=== PATIENT | female | born 1960 | race Two or more races ===

== ENCOUNTER 2024-12-24 09:56 | Emergency (ER) | payer OTHER, SELFPAY ==
[2024-12-24 10:17] VITALS: BP 138/88; PULSE 100; RESP 16; TEMP 36.9; O2SAT 97; BMI 29.2
--- NOTE | 2024-12-24 10:22 | XR_ITS ---
Examination: CT brain head without contrast. 2-D sagittal coronal reconstructions Date and time of exam:10/24/2024 1051 hours COMPARISON: 02/19/2022 INDICATIONS: Headaches dizziness and vomiting beginning 4 days ago CTDI: vol (mGy):43.7 DLP: (mGycm):842 Technique: Multiple CT axial sections of the brain have been obtained, 5 mm slice thickness. Contrast has not been administered. 2-D sagittal, coronal reconstructions have been obtained Low dose protocols were performed. One or more of the following dose reduction techniques were used; automated exposure control, adjustment of the mA and/or KV according to patient size, use of iterative reconstruction technique. Findings: No significant ventricular enlargement. Intra-axial or extra-axial hemorrhage density is not seen. No mass effect or midline shift Basal cisterns are not remarkable. Fourth ventricle is midline. Cranial vault intact. Impression: Negative for acute hemorrhage, mass effect or midline shift As clinically warranted, brain MRI follow-up would best assess for acute ischemic change
--- NOTE | 2024-12-24 10:22 | EKG_ITS ---
[facility] Test Date: 2024-12-24 Pat Name: FREDIS REYES Department: Room: - Gender: Female [employer]: : 1960 Requested By: Red Rivas (RESIDENTIAL THERAPIST) Order Number: [id number] Reading MD: Red Rivas (RESIDENTIAL THERAPIST) Measurements Intervals [place] Rate: 96 P: 47 AK: 134 QRS: 36 QRSD: 83 T: 101 QT: 335 QTc: 425 Interpretive Statements SINUS RHYTHM NONSPECIFIC T-WAVE ABNORMALITY Compared to ECG 04/29/2023 12:46:29 No significant changes /store/S0/[id number]/[id number].pdf
--- NOTE | 2024-12-24 10:23 | XR_ITS ---
Examination: PA lateral chest 2 views TECHNIQUE: Upright PA lateral chest 2 views Date and time: December 24, 2024 1033 hours INDICATIONS: Coughing shortness of breath today. FINDINGS: Normal heart size. Lungs are clear. The osseous structures are intact IMPRESSION: No active disease
--- NOTE | 2024-12-24 10:23 | PD.EDRME ---
Rapid Medical Screening Exam RME Arrival date/time: 12/24/24 09:56 64-year-old female presents to the emergency department today for complaints of headache, generalized bodyaches nausea vomiting Chief Complaint: Headache Vital signs: Vital Signs Temperature 98.4 F 12/24/24 10:17 Pulse Rate 100 12/24/24 10:17 Respiratory Rate 16 12/24/24 10:17 Blood Pressure 138/88 H 12/24/24 10:17 Pulse Oximetry (%) 97 12/24/24 10:17 Oxygen Delivery Method Room Air 12/24/24 10:17
[2024-12-24 10:48] LABS: Basophils # (Auto) 0.0 Thou/mm3 (0.0-0.2); Basophils % (Auto) 1 % (0-2.5); Eosinophils # (Auto) 0.1 Thou/mm3 (0.0-0.5); Eosinophils % (Auto) 1 % (0-10); Hematocrit 43.1 % (36.0-46.0); Hemoglobin 14.7 g/dL (12.0-16.0); Immature Granulocytes Auto 0.02 Thou/mm3 (0.00-0.00); Lymphocytes # (Auto) 1.1 Thou/mm3 (1.0-4.8); Lymphocytes % (Auto) 15 % (10-50); Mean Corpuscular HGB Conc 34.1 g/dl (31.0-37.0); Mean Corpuscular Hemoglobin 30.6 pg (25.0-35.0); Mean Corpuscular Volume 90 fL (80-100); Monocytes # (Auto) 0.6 Thou/mm3 (0.0-0.8); Monocytes % (Auto) 8 % (0-12); Neutrophils # (Auto) 5.7 Thou/mm3 (1.8-7.7); Neutrophils % (Auto) 76 % (37-80); Nucleated Red Blood Cell # 0.00 Thou/mm3 (0.00-0.00); Nucleated Red Blood Cell % 0 /100 WBC (0); Platelet Count 228 Thou/mm3 (140-440); RDW Standard Deviation 42.9 fL (36.4-46.3); Red Blood Count 4.80 Miln/mm3 (4.00-5.20); White Blood Count 7.5 Thou/mm3 (3.6-11.0)
[2024-12-24 10:51] LABS: Collection Type, Urine Clean Catch
[2024-12-24 11:00] LABS: INR 1.0 (0.9-1.3); Partial Thromboplastin Time 23.9 Seconds (22.0-36.0); Prothrombin Time 10.8 Seconds (9.0-12.2)
[2024-12-24] MEDS: HYDROcodone/APAP 5/325 TABLET 1 TAB PO (11:01)
[2024-12-24] MEDS: METOCLOPRAMIDE INJ 5 MG/ML VIAL 2 ML 10 MG IM (11:01)
[2024-12-24 11:05] LABS: Alanine Aminotransferase 17 U/L (10-49); Albumin, Serum 4.5 gm/dL (3.4-4.8); Albumin/Globulin Ratio 1.4 (1.2-2.2); Alkaline Phosphatase 95 U/L (46-116); Anion Gap 12 (7-16); Aspartate Amino Transferase 18 U/L (0-34); BUN/Creatinine Ratio 12 Ratio (12-20); Bilirubin,Total 1.1 mg/dL (0.3-1.2); Blood Urea Nitrogen 11 mg/dL (9-23); Calcium 9.5 mg/dL (8.3-10.6); Calcium (Corrected) 9.5 mg/dL (8.5-10.1); Carbon Dioxide 26.6 mMol/L (20.0-31.0); Chloride 101 mMol/L (98-107); Creatinine (Component) 0.9 mg/dL (0.6-1.3); Estimated Creatinine Clearance 59.7 mL/min (>60); Globulin 3.3 gm/dL (2.3-3.5); Glucose 162 mg/dL (74-106); Magnesium 1.8 mg/dL (1.6-2.6); Osmolality,Calculated 282 (275-295); Potassium 3.9 mMol/L (3.4-5.1); Sodium 140 mMol/L (136-145); Total Protein 7.8 gm/dL (5.7-8.2); Troponin I < 0.002 ng/mL (0.0-0.045); eGFR > 60 See Note
[2024-12-24 11:08] LABS: Bacteria,Urine Rare; Bilirubin,Urine Negative (Negative); Blood,Urine 3+ (Negative); Clarity,Urine Clear (Clear/Hazy); Color,Urine Yellow (Lt Yel-Yel); Glucose, Urine Negative (Negative); Hyaline Casts,Urine 1 /hpf (0-1); Ketones,Urine 2+ (Negative); Leukocyte Esterase,Urine Negative (Negative); Nitrite,Urine Negative (Negative); PH,Urine 6.0 (5.0-7.0); Protein,Urine 1+ (Neg - Trace); RBC,Urine 5 /hpf (0-3); Specific Gravity,Urine 1.023 (1.001-1.035); Squamous Epithelial Cell,Urine 2 /hpf (0-5); Urobilinogen,Urine Negative mg/dL (0.0-1.0); WBC,Urine 7 /hpf (0-5)
[2024-12-24 11:10] LABS: B-Type Natriuretic Peptide < 20 pg/mL (0-100)
--- NOTE | 2024-12-24 11:40 | PD.EDHA ---
ED Headache RME/HPI General Chief Complaint: Headache Stated Complaint: PORRAS X 5 days, vomiting, fever, dizzy Time Seen by Provider: 12/24/24 11:28 Arrival date/time: 12/24/24 09:56 RME / HPI RME / HPI Narrative: 64-year-old female patient with significant history of hypertension hypercholesterolemia, came in for evaluation regarding headache. Patient has been having headache for the last 5 days, frontal in location, associated with dizziness and sometimes vomiting. Patient also complained that she felt hot. No measured temperature at home. Also complained of nonproductive cough. Denies any abdominal pain. Denies any upper or lower focal neurologic deficit. Patient is ambulatory. Patient denies any neck pain. Denies any slurring of speech. Denies any head trauma or fall recently. Been taking Tylenol or Motrin with no relief. Related Data Home Medications ?Medication ?Instructions ?Recorded ?Confirmed atorvastatin 10 mg tablet 10 mg PO QDAY 04/29/23 04/29/23 lisinopril 20 mg tablet 20 mg PO QDAY 04/29/23 04/29/23 Previous Rx's ?Medication ?Instructions ?Recorded ciprofloxacin HCl 500 mg tablet 500 mg PO BID #14 tabs 04/30/23 (Cipro) hydrocodone 5 mg-acetaminophen 325 1 tab PO Q6H PRN pain #30 tabs 04/30/23 mg tablet benzonatate 200 mg capsule 200 mg PO TID PRN cough #30 caps 12/24/24 ondansetron HCl 4 mg tablet 4 mg PO Q8H PRN nausea and 12/24/24 vomiting 5 days #20 tabs scopolamine base 1 mg over 3 days 1 mg topical .Q3days #4 ea 12/24/24 transdermal patch Allergies Allergy/AdvReac Type Severity Reaction Status Date / Time Penicillins Allergy Unknown Verified 12/24/24 10:01 TEGADERM Allergy Mild Rash Uncoded 12/24/24 10:01 Review of Systems Review of Systems Narrative Review of Systems: Review of system reviewed and within normal limits except mentioned in HPI ED Exam Narrative Physical exam: VITAL SIGNS: Reviewed. GENERAL APPEARANCE: Alert and interactive, follows commands, no acute distress, HEAD AND FACE: Non-traumatic. ENT: PERRL, pink conjunctivitis, eyelid no trauma, Mucous membrane moist. NECK: Supple, nontender, no nuchal rigidity. CHEST: No tenderness, no crepitus, no paradoxical movement, no retractions. LUNGS: Clear, well ventilated, symmetric, no rales, no wheezing, no ronchi, no stridor, good breath sounds bilaterally. HEART: Regular rate, regular rhythm, no murmur, no gallops. ABDOMEN: Soft, positive bowel sounds, nondistended, no guarding, nontender, no rebound, no masses, RECTAL: Deferred. GENITAL: Deferred. NEUROLOGICAL: Gross motor function intact sensory function intact, Appropriate for age. MUSCULOSKELETAL: low back nontender, full range of motion. EXTREMITIES: Nontender, full range of motion. SKIN: Color pink, dry, no rash, no lacerations, no abrasions, no contusions. LYMPHATICS: Deferred. Course Quality Measures none Orders Category Date Time Status Bedside COVID-19 Antigen Test NOW Care 12/24/24 10:23 Active EKG (ED ONLY) *Do not use* NOW Care 12/24/24 10:[address] head/brain wo con Stat Exams 12/24/24 10:22 Completed EKG (ED Only) Stat Exams 12/24/24 10:22 Draft XR chest 2V Stat Exams 12/24/24 10:23 Completed B-Type Natriuretic Peptide Stat Lab 12/24/24 10:32 Completed CBC Stat Lab 12/24/24 10:32 Completed Comprehensive Metabolic Panel Stat Lab 12/24/24 10:32 Completed Magnesium Stat Lab 12/24/24 10:32 Completed Partial Thromboplastin Time Stat Lab 12/24/24 10:32 Completed Prothrombin Time with INR Stat Lab 12/24/24 10:32 Completed Troponin I Stat Lab 12/24/24 10:32 Completed Urinalysis Stat Lab 12/24/24 10:47 Completed HYDROcodone*/APAP 5/325 [[place] 5/325] Med 12/24/24 10:24 Discontinued 1 tab PO X1 ONE Ketorolac Inj [Toradol Inj] Med 12/24/24 11:39 Discontinued 15 mg IVP X1 ONE Metoclopramide Inj [Reglan Inj] Med 12/24/24 10:24 Discontinued 10 mg IM X1 ONE Ringers Lactated 1000 ml [Lactated Ringers] 1,000 ml Med 12/24/24 11:40 Discontinued IV 999 mls/hr Vital Signs Vital signs: Vital Signs Temperature 98.4 F 12/24/24 10:17 Pulse Rate 100 12/24/24 10:17 Respiratory Rate 16 12/24/24 10:17 Blood Pressure 138/88 H 12/24/24 10:17 Pulse Oximetry (%) 97 12/24/24 10:17 Oxygen Delivery Method Room Air 12/24/24 10:17 Headache MDM Narrative [facility] Narrative:: 64-year-old female patient with significant history of hypertension hypercholesterolemia, came in for evaluation regarding headache. Patient has been having headache for the last 5 days, frontal in location, associated with dizziness and sometimes vomiting. Patient also complained that she felt hot. No measured temperature at home. Also complained of nonproductive cough. Denies any abdominal pain. Denies any upper or lower focal neurologic deficit. Patient is ambulatory. Patient denies any neck pain. Denies any slurring of speech. Denies any head trauma or fall recently. Been taking Tylenol or Motrin with no relief. Patient's laboratory workup all came back normal including normal urinalysis, CMP unremarkable, CT scan of the head also came back unremarkable. I personally reviewed and interpreted the x-ray of this patient. There is no acute abnormalities found, no infiltrates no pneumothorax no hemothorax normal chest x-ray. Review of other structures was without significant abnormal findings also. I additionally reviewed the radiologist report and agree with the interpretation. Initially patient was given Reglan and [place] with mild improvement of headache. I added Toradol IV and IV fluids. Prior to discharge patient told me that her symptoms is totally gone patient is ambulatory. She was advised to follow-up closely with PCP and for referral to neurologist for worsening headache. Further imaging is not needed at this time. Patient data External records reviewed:: None Clinical information provided by:: patient Social determinants that could affect healthcare access:: none Patient has the following chronic illnesses:: Hypertension How is presenting disease/condition affected by chronic disease/condition?: exacerbated by Evaluation data The following diagnostics were reviewed and interpreted by me:: lab results, radiology exam(s) and EKG tracing(s) Lab and/or radiology exams considered but not ordered:: None Interpretation Summary: See results MDM Medications / Prescriptions Medications or Prescriptions considered but not ordered:: None Medication administrations:: Medication Administration History Discontinued Medications Hydrocodone Bitart/Acetaminophen (Hydrocodone/Apap 5/325 Tablet) 1 tab PO X1 ONE Stop: 12/24/24 10:25 Last Admin: 12/24/24 11:01 Dose: 1 tab Documented By: ANIYAH Lactated Ringer's (Lactated Ringers) 1,000 mls @ 999 mls/hr IV .Q1H1M ONE Stop: 12/24/24 12:40 Last Admin: 12/24/24 12:02 Dose: 999 mls/hr Documented By: LEILA Ketorolac Tromethamine (Ketorolac Inj 30 Mg/Ml Vial) 15 mg IVP X1 ONE Stop: 12/24/24 11:40 Last Admin: 12/24/24 12:01 Dose: 15 mg Documented By: LEILA Metoclopramide HCl (Metoclopramide Inj 5 Mg/Ml Vial 2 Ml) 10 mg IM X1 ONE; Protocol Stop: 12/24/24 10:25 Last Admin: 12/24/24 11:01 Dose: 10 mg Documented By: ANIYAH [place] Reglan IV fluids and Toradol IV Consultations Consultation(s) initiated? (list below): No Diagnosis Differential diagnosis headache: tension headache and other (Dehydration, cough, pneumonia) Most likely diagnosis given after review of the tests above:: Dizziness, headache, cough, dehydration Admission Indicated Admission indicated?: not indicated Explain why admission is indicated or not indicated:: Stable Admission Request Was there a request for admission?: No Disposition Plan Disposition Plan: Discharge Discharge Attestation Discharge Attestation: The patient and all family members were given an opportunity to ask questions and understood the discharge instructions. Discharge instructions specifically effects, indications for sooner follow up or return to the emergency department, and the expected course of current diagnosis. Patient condition: Stable Discharge Plan Plan Patient Disposition: HOME (Self Care) Discharge Disposition comment: Stable Prescriptions/Referrals Prescriptions/Med Rec: New ondansetron HCl 4 mg tablet 4 mg PO Q8H PRN (Reason: nausea and vomiting) 5 Days Qty: 20 0RF scopolamine base 1 mg over 3 days patch 3 day 1 mg topical .Q3days Qty: 4 0RF benzonatate 200 mg capsule 200 mg PO TID PRN (Reason: cough) Qty: 30 0RF No Action atorvastatin 10 mg Tablet 10 mg PO QDAY lisinopril 20 mg Tablet 20 mg PO QDAY hydrocodone-acetaminophen 5-325 mg tablet 1 tab PO Q6H MDD 4 PRN (Reason: pain) Qty: 30 0RF ciprofloxacin HCl [Cipro] 500 mg tablet 500 mg PO BID Qty: 14 0RF Referrals: Bob Price PA-C [Primary Care Provider] - In 1 week Problem List Clinical Impression: Dizziness, Cough, Headache Patient/Caregiver Discharge Instructions Discharge Activity: activity as tolerated Education Materials: ED Dizziness, Uncertain Cause Additional Instructions: Thank you for the opportunity for serving you today. You are stable for discharged . You are advised to: Follow-up with your PCP in 1 to 2 days Return to ED for worsening of symptoms Increase oral fluids including Pedialyte's Take medication as prescribed Take Motrin or Tylenol as needed for headache Print Language: Georgian Stand Alone Forms: Verito Award Info., Patient Portal Info Letter PA/BASIL Supervising Physician PA/BASIL Supervising Physician: MD Malathi
[2024-12-24] MEDS: KETOROLAC INJ 30 MG/ML VIAL 15 MG IVP (12:01)
[2024-12-24] MEDS: RINGERS LACTATED 1000 ML 1,000 ML 999 ML IV (12:02)
== END 2024-12-24 13:02 | disposition home or self-care (01) ==
PROVIDERS: Nurse Practitioner Primary Care; Emergency Provider Emergency Medicine; PCP Physician Assistant
DX: R42 Dizziness and giddiness (principal); R05.9 Cough, unspecified; R51.9 Headache, unspecified; R94.31 Abnormal electrocardiogram [ECG] [EKG]; R06.02 Shortness of breath; I10 Essential (primary) hypertension
CPT/HCPCS: 36415; 70450; 71046; 80053; 81001; 83735; 83880; 84484; 85025; 85610; 85730; 87811; 93005; 96361; 96374; 99283; J1885; J2765; J7120; A9270